=== PATIENT | male | born 1965 | race Caucasian/White ===

== ENCOUNTER 2017-12-15 13:48 | Inpatient (IN) | payer MEDICAID ==
[~2017-12-15] VITALS: Ht 185.4 cm; Wt 120.0 kg
[~2017-12-15 13:48] MED LIST: ALBU6.7H INH; ALBU6.7H3 IH; BECL7.3A7 INH; ESCI10TA PO; FAMO-128 PO; FURO40TA4 PO; NAPR250T4 PO
[2017-12-15] MEDS ORDERED: aspirin 81mg tab.chew PO ONE (16:15)
[2017-12-15] MEDS ORDERED: LIDOcaine Viscous 15ml cup MM PRN (16:15)
[2017-12-15] MEDS ORDERED: sucralfate 1gm/10ml UD suspension PO SCH (16:15)
[2017-12-15] MEDS ORDERED: mag hydrox/Alum hydrox/simeth 30ml oral suspension PO ONE (16:15)
[2017-12-15] MEDS ORDERED: nitroGLYCERIN 0.4mg SUBLingual tab SL PRN (16:15)
[2017-12-15 16:34] LABS: BASOPHILS # (AUTO) 0.1 X10'3 (0-0.2); BASOPHILS % (AUTO) 1.4 % (0-1); EOSINOPHILS # (AUTO) 0.3 X10'3 (0-0.9); EOSINOPHILS % (AUTO) 6.2 % (0-6); HEMATOCRIT 35.1 % (42.0-52.0); HEMOGLOBIN 12.1 g/dl (14.0-17.9); LYMPHOCYTES # (AUTO) 0.5 X10'3 (1.1-4.8); LYMPHOCYTES % (AUTO) 11.1 % (21-51); MEAN CORPUSCULAR HEMOGLOBIN 28.4 PG (27.0-31.0); MEAN CORPUSCULAR HGB CONC 34.4 % (33.0-36.5); MEAN CORPUSCULAR VOLUME 82.6 FL (78-98); MEAN PLATELET VOLUME 8.9 FL (7.4-10.4); MONOCYTES # (AUTO) 0.3 X10'3 (0-0.9); MONOCYTES % (AUTO) 6.9 % (2-12); NEUTROPHILS # (AUTO) 3.1 X10'3 (1.8-7.7); NEUTROPHILS % (AUTO) 74.4 % (42-75); PLATELET COUNT 113 X10'3 (140-440); RED BLOOD COUNT 4.25 X10'6 (4.70-6.10); RED CELL DISTRIBUTION WIDTH 16.3 % (11.5-14.5); WHITE BLOOD COUNT 4.2 X10'3 (4.5-11.0)
[2017-12-15 16:59] LABS: ALBUMIN 3.3 G/DL (3.4-5.0); ANION GAP 7 (8-16); BLOOD UREA NITROGEN 25 MG/DL (7-18); BUN/CREATININE RATIO 31.3 (5.4-32.0); CALCIUM 8.9 MG/DL (8.5-10.1); CHLORIDE 106 MMOL/L (99-107); GLUCOSE 129 MG/DL (70-104); MAGNESIUM 1.9 MG/DL (1.5-2.4); POTASSIUM 4.5 MMOL/L (3.5-5.1); SODIUM 141 MMOL/L (135-145); TOTAL PROTEIN 6.9 G/DL (6.4-8.2); eGFR > 90 ML/MIN
[2017-12-15 17:00] LABS: ALANINE AMINOTRANSFERASE 86 U/L (12-78); ALBUMIN/GLOBULIN RATIO 0.9 (1.1-1.5); ALKALINE PHOSPHATASE 122 IU/L (46-116); ASPARTATE AMINO TRANSFERASE 81 U/L (10-37)
[2017-12-15] MEDS ORDERED: PER5325T PO (17:55)
[2017-12-15] MEDS ORDERED: ondansetron/PF 4mg/2ml inj IV PRN (18:15)
[2017-12-15] MEDS ORDERED: haloperidol lactate 5mg/ml inj IM PRN (18:15)
[2017-12-15] MEDS ORDERED: LORazepam 2 mg/ml vial IV PRN (18:15)
[2017-12-15] MEDS ORDERED: magnesium hydroxide 30ml (MOM) UD suspension PO PRN (18:15)
[2017-12-15] MEDS ORDERED: magnesium Cl slow-release 64mg tablet PO PRN (18:15)
[2017-12-15] MEDS ORDERED: dextrose 50%-water 50ml dispensing syringe IV PRN ×3 (18:15)
[2017-12-15] MEDS ORDERED: aspirin 325mg tablet PO ONE (18:15)
[2017-12-15] MEDS ORDERED: mag hydrox/Alum hydrox/simeth 30ml oral suspension PO PRN (18:15)
[2017-12-15] MEDS ORDERED: potassium Cl 40MEQ/NS 500ml 500 ML IV PRN ×2 (18:15)
[2017-12-15] MEDS ORDERED: morphine 2 MG/ML inj. syringe IV PRN (18:15)
[2017-12-15] MEDS ORDERED: MESSAGE TO PHARMACY PO ONE (18:15)
[2017-12-15] MEDS ORDERED: haloperidol 5mg tablet PO PRN (18:15)
[2017-12-15] MEDS ORDERED: lisinopril 10 MG tablet PO ONE (18:15)
[2017-12-15] MEDS ORDERED: thiamine 100mg/ml 2ml inj. IV ONE (18:15)
[2017-12-15] MEDS ORDERED: magnesium 2GM in 50ml NS 50 ML IV PRN (18:15)
[2017-12-15] MEDS ORDERED: magnesium 4gm in 100ml NS 100 ML IV PRN (18:15)
[2017-12-15] MEDS ORDERED: insulin Lispro (HumaLOG) vial - multi-dose SQ SCH (18:15)
[2017-12-15] MEDS ORDERED: metoprolol tartrate 50mg tablet PO ONE (18:15)
[2017-12-15] MEDS ORDERED: potassium Cl 20 mEq SR tablet PO PRN ×2 (18:15)
[2017-12-15] MEDS ORDERED: glucagon, human recombinant 1mg kit SUBCUT PRN (18:15)
[2017-12-15] MEDS ORDERED: dextrose ORAL solution 15 GM/59 ML bottle PO PRN ×2 (18:15)
[2017-12-15] MEDS ORDERED: acetaminophen 325mg tablet PO PRN (18:15)
[2017-12-15 18:43] LABS: INR 1.1 INR; PARTIAL THROMBOPLASTIN TIME 26 SECONDS (22-32); PROTHROMBIN TIME 11.3 SECONDS (9.0-12.0)
[2017-12-15] MEDS ORDERED: heparin 10,000 units/1 ML INJ IV ONE ×2 (19:10→20:30)
[2017-12-15] MEDS: famotidine 20mg tablet PO SCH (20:39)
[2017-12-15] MEDS: metoprolol tartrate 25mg tablet PO SCH (20:39)
[2017-12-15] MEDS: insulin glargine (Lantus) pen - multi-dose SQ SCH (21:00)
[2017-12-16] VITALS (7 sets, daily range): BP systolic 97–109; BP diastolic 50–63
[2017-12-16 05:32] LABS: BASOPHILS % (AUTO) 0.4 % (0-1); EOSINOPHILS # (AUTO) 0.3 X10'3 (0-0.9); EOSINOPHILS % (AUTO) 10.1 % (0-6); HEMATOCRIT 31.7 % (42.0-52.0); HEMOGLOBIN 11.1 g/dl (14.0-17.9); LYMPHOCYTES # (AUTO) 0.5 X10'3 (1.1-4.8); MEAN CORPUSCULAR HEMOGLOBIN 28.1 PG (27.0-31.0); MEAN CORPUSCULAR HGB CONC 34.8 % (33.0-36.5); MEAN CORPUSCULAR VOLUME 80.7 FL (78-98); MEAN PLATELET VOLUME 9.3 FL (7.4-10.4); MONOCYTES # (AUTO) 0.3 X10'3 (0-0.9); MONOCYTES % (AUTO) 9.8 % (2-12); NEUTROPHILS # (AUTO) 1.8 X10'3 (1.8-7.7); NEUTROPHILS % (AUTO) 62.7 % (42-75); PLATELET COUNT 94 X10'3 (140-440); RED BLOOD COUNT 3.93 X10'6 (4.70-6.10); RED CELL DISTRIBUTION WIDTH 16.8 % (11.5-14.5); WHITE BLOOD COUNT 2.8 X10'3 (4.5-11.0)
[2017-12-16 06:04] LABS: ALANINE AMINOTRANSFERASE 76 U/L (12-78); ALBUMIN 2.9 G/DL (3.4-5.0); ALBUMIN/GLOBULIN RATIO 0.9 (1.1-1.5); ALKALINE PHOSPHATASE 112 IU/L (46-116); ANION GAP 8 (8-16); ASPARTATE AMINO TRANSFERASE 80 U/L (10-37); BILIRUBIN,TOTAL 0.9 MG/DL (0.1-1.0); BLOOD UREA NITROGEN 29 MG/DL (7-18); CALCIUM 8.4 MG/DL (8.5-10.1); CHLORIDE 107 MMOL/L (99-107); CHOLESTEROL 106 MG/DL (0-200); GLUCOSE 161 MG/DL (70-104); MAGNESIUM 2.1 MG/DL (1.5-2.4); SODIUM 142 MMOL/L (135-145); TOTAL CARBON DIOXIDE 26.9 MMOL/L (24-32); TOTAL PROTEIN 6.1 G/DL (6.4-8.2); eGFR 78 ML/MIN
[2017-12-16 06:05] LABS: CHOL/HDL RATIO 1.9 (0.00-4.99); HDL CHOLESTEROL 55 MG/DL (35-60); LDL CHOLESTEROL 44 MG/DL (50-100); TRIGLYCERIDES 41 MG/DL (20-135)
[2017-12-16 06:22] LABS: ANISOCYTOSIS 1+; MICROCYTOSIS 1+; PLATELET ESTIMATE DECREASED; TOTAL CELLS COUNTED 100
[2017-12-16] MEDS: heparin 10,000 units/1 ML INJ IV PRN ×3 (07:54→21:48)
[2017-12-16] MEDS: K and/or MAG REPLACEMENT MC SCH (08:00)
[2017-12-16] MEDS: morphine 2 MG/ML inj. syringe IV PRN (09:33)
[2017-12-16] MEDS: citalopram 20mg tablet PO SCH (09:35)
[2017-12-16] MEDS: furosemide 40mg tablet PO SCH (09:35)
[2017-12-16] MEDS: metoprolol tartrate 25mg tablet PO SCH ×3 (09:36→19:33)
[2017-12-16] MEDS: atorvastatin 20mg tablet PO SCH (09:36)
[2017-12-16] MEDS: famotidine 20mg tablet PO SCH ×3 (09:37→19:33)
[2017-12-16] MEDS: lisinopril 10 MG tablet PO SCH (09:38)
[2017-12-16] MEDS: aspirin 325mg tablet PO SCH (09:38)
[2017-12-16] MEDS ORDERED: aminophylline 250mg/10ml inj. IV PRN (11:20)
[2017-12-16] MEDS ORDERED: metoprolol tartrate 1mg/ml inj IV PRN (11:20)
[2017-12-16] MEDS ORDERED: regadenoson 0.4mg/5ml syringe IV ONE (11:20)
[2017-12-16] MEDS ORDERED: nitroGLYCERIN 0.4mg SUBLingual tab SL PRN (11:20)
[2017-12-16] MEDS: insulin glargine (Lantus) pen - multi-dose SQ SCH (21:00)
[2017-12-17] VITALS (12 sets, daily range): BP systolic 102–144; BP diastolic 48–69
[2017-12-17 05:35] LABS: BASOPHILS % (AUTO) 0.7 % (0-1); EOSINOPHILS # (AUTO) 0.3 X10'3 (0-0.9); EOSINOPHILS % (AUTO) 10.9 % (0-6); HEMATOCRIT 32.6 % (42.0-52.0); HEMOGLOBIN 11.3 g/dl (14.0-17.9); LYMPHOCYTES # (AUTO) 0.5 X10'3 (1.1-4.8); LYMPHOCYTES % (AUTO) 16.5 % (21-51); MEAN CORPUSCULAR HEMOGLOBIN 28.1 PG (27.0-31.0); MEAN CORPUSCULAR HGB CONC 34.6 % (33.0-36.5); MEAN CORPUSCULAR VOLUME 81.3 FL (78-98); MEAN PLATELET VOLUME 9.3 FL (7.4-10.4); MONOCYTES # (AUTO) 0.3 X10'3 (0-0.9); MONOCYTES % (AUTO) 8.5 % (2-12); NEUTROPHILS % (AUTO) 63.4 % (42-75); PLATELET COUNT 99 X10'3 (140-440); RED BLOOD COUNT 4.02 X10'6 (4.70-6.10); RED CELL DISTRIBUTION WIDTH 16.3 % (11.5-14.5); WHITE BLOOD COUNT 3.1 X10'3 (4.5-11.0)
[2017-12-17 06:32] LABS: ALANINE AMINOTRANSFERASE 77 U/L (12-78); ALBUMIN/GLOBULIN RATIO 0.9 (1.1-1.5); ALKALINE PHOSPHATASE 103 IU/L (46-116); ANION GAP 9 (8-16); ASPARTATE AMINO TRANSFERASE 83 U/L (10-37); BLOOD UREA NITROGEN 23 MG/DL (7-18); CALCIUM 8.4 MG/DL (8.5-10.1); CHLORIDE 106 MMOL/L (99-107); GLUCOSE 142 MG/DL (70-104); POTASSIUM 3.9 MMOL/L (3.5-5.1); SODIUM 141 MMOL/L (135-145); TOTAL CARBON DIOXIDE 26.4 MMOL/L (24-32); TOTAL PROTEIN 6.2 G/DL (6.4-8.2); eGFR 78 ML/MIN
[2017-12-17] MEDS: heparin 10,000 units/1 ML INJ IV PRN (06:47)
[2017-12-17] MEDS: metoprolol tartrate 25mg tablet PO SCH (08:00)
[2017-12-17] MEDS: famotidine 20mg tablet PO SCH (08:06)
[2017-12-17] MEDS: atorvastatin 20mg tablet PO SCH (08:06)
[2017-12-17] MEDS: furosemide 40mg tablet PO SCH (08:06)
[2017-12-17] MEDS: citalopram 20mg tablet PO SCH (08:06)
[2017-12-17] MEDS: aspirin 325mg tablet PO SCH (08:06)
[2017-12-17] MEDS: lisinopril 10 MG tablet PO SCH (08:07)
[2017-12-17] MEDS: morphine 2 MG/ML inj. syringe IV PRN (10:34)
[2017-12-17] MEDS ORDERED: regadenoson 0.4mg/5ml syringe IV ONE (12:19)
[2017-12-17] MEDS ORDERED: aminophylline inj. 0 ML IV ONE (12:19)
[2017-12-17] MEDS: K and/or MAG REPLACEMENT MC SCH (13:48)
[2017-12-17] MEDS ORDERED: LORazepam 1 MG tablet PO PRN (18:15)
[2017-12-17] MEDS ORDERED: LORazepam 2 mg/ml vial IV PRN (18:15)
[2017-12-19] MEDS ORDERED: LORazepam 1 MG tablet PO PRN (18:15)
[2017-12-19] MEDS ORDERED: LORazepam 2 mg/ml vial IV PRN (18:15)
== END 2017-12-17 17:00 | disposition home or self-care (01) | DRG 243 ==
LOC: ER 13:49 → ED HOLD 18:11 → EDBEDREQ 12-16 04:37 → PCU 3S 12-16 04:50 → SUR 3N 12-17 13:10
PROVIDERS: ADMIT Legal Medicine; ATTEND Legal Medicine
PROC: C2261ZZ Tomographic (Tomo) Nuclear Medicine Imaging of Right and Left Heart using Technetium 99m (Tc-99m) (ICD-10-PCS; principal; 2017-12-17)
DX: K21.9 Gastro-esophageal reflux disease without esophagitis (principal); I85.10 Secondary esophageal varices without bleeding; I11.0 Hypertensive heart disease with heart failure; E11.65 Type 2 diabetes mellitus with hyperglycemia; I50.30 Unspecified diastolic (congestive) heart failure; E66.01 Morbid (severe) obesity due to excess calories; K80.20 Calculus of gallbladder without cholecystitis without obstruction; K70.30 Alcoholic cirrhosis of liver without ascites; I25.10 Atherosclerotic heart disease of native coronary artery without angina pectoris; F11.10 Opioid abuse, uncomplicated; F17.200 Nicotine dependence, unspecified, uncomplicated; F41.0 Panic disorder [episodic paroxysmal anxiety]; J44.9 Chronic obstructive pulmonary disease, unspecified; B19.20 Unspecified viral hepatitis C without hepatic coma; F12.90 Cannabis use, unspecified, uncomplicated; F14.90 Cocaine use, unspecified, uncomplicated; F15.90 Other stimulant use, unspecified, uncomplicated; F32.9 Major depressive disorder, single episode, unspecified; G89.29 Other chronic pain; L40.9 Psoriasis, unspecified; I25.2 Old myocardial infarction; Z82.49 Family history of ischemic heart disease and other diseases of the circulatory system; Z95.5 Presence of coronary angioplasty implant and graft; Z59.0 Homelessness; Z68.34 Body mass index [BMI] 34.0-34.9, adult
CPT/HCPCS: 36415; 71045; 78452; 80053; 80061; 82948; 83735; 83880; 84484; 85025; 85610; 85730; 87070; 93005; 93017; 93306; 99285; A9500; J0280; J1644; J1815; J2270; J3411